=== PATIENT | male | born 1985 | race African-American/Black ===

== ENCOUNTER 2017-02-14 11:22 | Emergency (ER) | payer SELFPAY ==
[2017-02-14 11:29] VITALS: BP 137/87
[2017-02-14] MEDS ORDERED: LIDOCAINE 1% INJ-PF (10 MG/ML) 30 ML SDV INJ ONE (12:18)
--- NOTE | 2017-02-14 12:26 | ER Document Report ---
ED Skin Rash/Insect Bite/Abscs - General Chief Complaint: Insect Bite Stated Complaint: LEFT LEG PAIN Time Seen by Provider: 02/14/17 11:53 Mode of Arrival: Ambulatory Information source: Patient Notes: 31-year-old male presents to ED for complaint of pain and swelling to the left groin area with a rash on the top of his head. He states the first noticed the swelling to his groin on morning scalp is been inflamed since last Thursday. He awoke this with minimal swelling which is slowly progressed to the point where it is very painful to walk or move now he denies any fevers chills or night sweats. He is alert and oriented and is able to walk steady. TRAVEL OUTSIDE OF THE [place] IN LAST 30 DAYS: No - HPI Patient complains to provider of: Skin rash/lesion, Tender/swollen area - To the scalp to the left groin Onset: Last week Onset/Duration: Gradual, Worse Quality of pain: Achy, Sharp, Throbbing Severity: Severe Pain Level: 5 Skin Character: Abscess, Erythema, Macules, Tenderness Quality of rash: Painful Identify cause: No Exacerbated by: Denies Relieved by: Denies Similar symptoms previously: Yes Recently seen / treated by doctor: No - Related Data Allergies/Adverse Reactions: No Known Allergies Allergy (Verified 02/14/17 11:29) Past Medical History - General Information source: Patient - Social History Smoking Status: Former Smoker Cigarette use (# per day): No Chew tobacco use (# tins/day): No Smoking Education Provided: No Frequency of alcohol use: Social Drug Abuse: None Occupation: Moving company Lives with: Alone Family History: Arthritis, DM, Hypertension Patient has suicidal ideation: No Patient has homicidal ideation: No - Past Medical History Cardiac Medical History: Reports: None Pulmonary Medical History: Reports: None EENT Medical History: Reports: None Neurological Medical History: Reports: None Endocrine Medical History: Reports: None Renal/ Medical History: Reports: None Malignancy Medical History: Reports None GI Medical History: Reports: None Musculoskeltal Medical History: Reports None Skin Medical History: Reports Hx Cellulitis, Reports Hx Eczema Psychiatric Medical History: Reports: None Traumatic Medical History: Reports: None Infectious Medical History: Reports: None Surgical Hx: Negative - Immunizations Hx Diphtheria, Pertussis, Tetanus Vaccination: No Review of Systems - Review of Systems Constitutional: No symptoms reported EENT: No symptoms reported Cardiovascular: No symptoms reported Respiratory: No symptoms reported Gastrointestinal: No symptoms reported Genitourinary: No symptoms reported Male Genitourinary: No symptoms reported Musculoskeletal: No symptoms reported Skin: Lesions - Scalp, Other - Groin Hematologic/Lymphatic: No symptoms reported Neurological/Psychological: No symptoms reported -: Yes All other systems reviewed and negative Physical Exam - Vital signs Vitals: Temp Pulse Resp BP Pulse Ox 98.8 F 108 H 16 137/87 H 97 02/14/17 11:24 02/14/17 11:24 02/14/17 11:24 02/14/17 11:24 02/14/17 11:24 Interpretation: Normal - General General appearance: Appears well, Alert - HEENT Head: Other - Rash with open sores to the scalp Eyes: Normal Pupils: PERRL Ears: Normal External canal: Normal Tympanic membrane: Normal Sinus: Normal Nasal: Normal Mouth/Lips: Normal Mucous membranes: Normal Pharynx: Normal Neck: Normal - Respiratory Respiratory status: No respiratory distress Chest status: Nontender Breath sounds: Normal Chest palpation: Normal - Cardiovascular Rhythm: Regular Heart sounds: Normal auscultation Murmur: No - Abdominal Inspection: Normal Distension: No distension Bowel sounds: Normal Tenderness: Nontender Organomegaly: No organomegaly - Back Back: Normal, Nontender - Extremities General upper extremity: Normal inspection, Nontender, Normal color, Normal ROM , Normal temperature General lower extremity: Normal inspection, Nontender, Normal color, Normal ROM , Normal temperature, Normal weight bearing. No: Larisa's sign - Neurological Neuro grossly intact: Yes Cognition: Normal Orientation: AAOx4 [place] Coma Scale Eye Opening: Spontaneous [place] Coma Scale Verbal: Oriented Amos Coma Scale Motor: Obeys Commands Amos Coma Scale Total: 15 Speech: Normal Motor strength normal: LUE, RUE, LLE, RLE Sensory: Normal - Psychological Associated symptoms: Normal affect, Normal mood - Skin Skin Temperature: Warm Skin Moisture: Dry Skin Color: Normal Skin irregularity: Abscess - Left groin, Rash - Rash with open sores to the scalp Character of irregularity: Maculopapular - Some weeping Irregularity with: Swelling, Tenderness, Warmth, Crusting, Inflammation Course - Vital Signs Vital signs: Temp Pulse Resp BP Pulse Ox 98.8 F 108 H 16 137/87 H 97 02/14/17 11:24 02/14/17 11:24 02/14/17 11:24 02/14/17 11:24 02/14/17 11:24 Procedures - Incision and Drainage Left Groin Time completed: 13:02 Type: Simple Anesthetic type: 1% Lidocaine mL's of anesthetic: 8 Blade size: 11 I&D procedure: Shurclens applied, Sterile dressing applied Incision Method: Incision made by scalpel Amount/type of drainage: large amount of purulent drainage Discharge - Discharge Clinical Impression: scalp rash, Abscess of left groin Condition: Stable Disposition: HOME, SELF-CARE Instructions: Family Physicians / Practices Additional Instructions: ABSCESS: You have an abscess (boil). This a pus-forming infection, usually due to staph. Some boils may be left to drain on their own, but most require lancing. From the time the tender lump first appears, it may be three or four days before the abscess is ready to gerson. Local heat and rest help at this stage of treatment. An antibiotic may prevent spread of the infection. Once the abscess is opened, packing may be placed into it. This is done so pus is not sealed inside by premature closure of the cavity. The packing will be removed at your follow-up visit or you may be advised to remove it yourself at home. Sometimes this packing must be replaced a few times during healing. The wound will heal with surprisingly little scar. Depending on the size and location of an abscess, healing can take one to four weeks. You may shower and wash the area around the incision site two or three times a day. Antibiotics may be prescribed, but are usually not necessary after an abscess has been drained. If you develop fever, chills, worsening pain, or increasing swelling in the area, call the doctor or return immediately. POST INCISION AND DRAINAGE: You have had an incision made to allow drainage of an abscess. The incision must remain open so that pus and debris can drain from the wound. If the abscess cavity is large, packing is placed. This keeps the tissues from collapsing and trapping pus inside, while the body shrinks the cavity. The packing may need to be replaced every day or two. The physician will instruct you on the packing. Keep a bulky dressing over the area. Replace it if it becomes saturated with blood or pus. Do not disturb the packing (if present). You may shower and cleanse the area with gentle soap and warm water two or three times a day. Local warmth may be soothing, and may promote faster healing. Return if you develop high fever or chills, or if you note spreading redness, increasing swelling, or increasing tenderness. MRSA CELLULITIS: You have an infection of your skin and underlying soft tissues called cellulitis. This is due to bacteria, which can enter through any break in the skin, or even through an irritated hair follicle. Untreated, cellulitis will usually worsen and may form an abscess which requires draining. Although many bacterial organisms can cause cellulitis and abscess formations, the most likely bacteria is Methicillin-Resistant Staph Aureus, or MRSA for short. Antibiotics are required. Usually, warm packs or warm soaks, and elevation of the infected area are recommended. You should start getting better within 24 to 36 hours. Most infections respond quickly to the right medication. Follow-up care is important, however, to check for abscess (boil) formation, unsuspected foreign body, or resistant infection. If you develop fever, chills, or if the area of infection is becoming rapidly more swollen or painful, call the doctor at once. Epsom Salt Soaks Soak the wound area in a container of warm epsom salt water. If you can't get the wound area into a bucket or herrera, use a folded towel soaked in the epsom salt solution and apply to the area. Use clean hot tap water (about the temperature of a very warm bath), mixing in about one (1) teaspoon for every pint of water. Two gallon --> 16 teaspoons Epsom Salts One gallon --> 8 teaspoons Epsom Salts Two quarts --> 4 teaspoons Epsom Salts One quart --> 2 teaspoons Epsom Salts Soak the wound for about 20 minutes while gently moving it around in the water. Repeat this four (4) times a day. CEPHALEXIN: The antibiotic you've been prescribed is a member of the cephalosporin class. This type of antibiotic covers a wide variety of infections, including those of the skin, lungs, and urinary tract. It's useful for staph infections. This antibiotic is slightly similar to the penicillin family. In rare cases , a person who is allergic to penicillin will also be allergic to this medication. If you have had a severe allergic reaction to penicillin, and have not taken this antibiotic since that time, notify your doctor. Antibiotics which cover many germs ("broad spectrum" antibiotics) are more likely to cause diarrhea or "yeast" infections. Women prone to vaginal yeast problems may suffer an attack after taking this antibiotic. In infants, oral thrush (white spots "stuck" on the cheek) or yeast diaper rash may result. See your doctor if these problems occur. Call at once if you develop itching, hives , shortness of breath, or lightheadedness. TRIMETHOPRIM-SULFA: You have been given a prescription for trimethoprim-sulfa (TMS, Septra, Bactrim). This is a combination antibiotic of the sulfa class, often used for urinary tract infections, middle ear infections, bronchitis, shigella intestinal infection, and Pneumocystis pneumonia. TMS is usually well-tolerated. Occasional side effects include nausea and decreased appetite. Septra is not recommended for infants less than two months of age. Do not take this medication if you have experienced severe side effects or allergy to sulfa medicine. You should stop this medicine at once and contact your physician if you develop any rash, joint pain, shortness of breath, bruising, or jaundice ( yellow color in the skin), or if you develop any other new or unusual symptoms. DOXYCYCLINE: Doxycycline (Vibramycin, Doryx) is an antibiotic of the tetracycline family. This type of drug is useful for infections of the respiratory tract and genital tract, and is sometimes used for intestinal infections. Unlike most tetracyclines, doxycycline can be taken with food. It is longer acting, and (usually) less prone to side effects than regular tetracycline. Tetracycline antibiotics can stain immature teeth and SHOULD NOT BE TAKEN BY CHILDREN, NURSING MOTHERS, OR WOMEN. Tetracyclines can make you more prone to sunburn. Abdominal cramping, nausea, and diarrhea are occasional side effects. Women may experience vaginal yeast infections. Call the doctor at once if you develop hives, itching, shortness of breath , or lightheadedness. FOLLOW-UP CARE: Most simple abscesses will not require a follow up visit. If you had packing placed in the abscess, remove it as instructed by the physician. If you have been referred to a physician for follow-up care, call the physicians office for an appointment as you were instructed or within the next two days. If you experience worsening or a significant change in your symptoms, return to the Emergency Department at any time for re-evaluation. Prescriptions: Cephalexin Monohydrate [Keflex 500 mg Capsule] 500 mg PO QID #20 capsule Sulfamethoxazole/Trimethoprim [Bactrim Ds Tablet] 1 each PO BID #20 tablet Forms: Elevated Blood Pressure, Return to Work
[2017-02-14] MEDS ORDERED: SULFAMETHOXAZOLE/TRIMETHOPRIM 800-160 MG TABLET PO ONE (13:03)
[2017-02-14] MEDS ORDERED: CEPHALEXIN 500 MG CAPSULE PO ONE (13:03)
== END 2017-02-14 13:00 | disposition home or self-care (01) ==
LOC: ER 11:22
PROC: 0H97XZZ Drainage of Abdomen Skin, External Approach (ICD-10-PCS; principal; 2017-02-14)
DX: R21 Rash and other nonspecific skin eruption (principal); L02.214 Cutaneous abscess of groin
CPT/HCPCS: 87070; 87075; 87077; 87186; 87205; 99281

== ENCOUNTER 2017-02-25 11:39 | Emergency (ER) | payer SELFPAY ==
[2017-02-25 11:43] VITALS: BP 148/85
[2017-02-25] MEDS ORDERED: NYSTATIN/TRIAMCIN OINTMENT 15 GM TP ONE (12:32)
--- NOTE | 2017-02-25 12:36 | ER Document Report ---
ED Skin Rash/Insect Bite/Abscs - General Chief Complaint: Skin Problem Stated Complaint: SCROTUM PAIN Time Seen by Provider: 02/25/17 12:16 Mode of Arrival: Ambulatory Information source: Patient Notes: 11-year-old male presented to ED for complaint of irritation rash to the groin where he was seen 2 weeks ago for an abscess. The abscess was drained. He states that he has had irritation and rash to the area ever since the abscess was drained. He states he no longer has the pain or swelling. TRAVEL OUTSIDE OF THE [place] IN LAST 30 DAYS: No - HPI Patient complains to provider of: Skin rash/lesion Onset: Other - 2 weeks Onset/Duration: Persistent Quality of pain: No pain Severity: None Pain Level: Denies Skin Character: Rash Quality of rash: Itchy Identify cause: No Exacerbated by: Denies Relieved by: Denies Similar symptoms previously: No Recently seen / treated by doctor: Yes - Related Data Allergies/Adverse Reactions: No Known Allergies Allergy (Verified 02/25/17 11:42) Past Medical History - General Information source: Patient - Social History Smoking Status: Former Smoker Cigarette use (# per day): No Chew tobacco use (# tins/day): No Smoking Education Provided: No Frequency of alcohol use: None Drug Abuse: None 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 denies: CAD, COPD, CVA, Hyperlipidemia, Malignancy, Thyroid Disfunction Patient has suicidal ideation: No - Past Medical History Cardiac Medical History: Reports: None Pulmonary Medical History: Reports: None EENT Medical History: Reports: None Neurological Medical History: Reports: None Endocrine Medical History: Reports: None Renal/ Medical History: Reports: None Malignancy Medical History: Reports None GI Medical History: Reports: None Musculoskeltal Medical History: Reports None Skin Medical History: Reports Hx Cellulitis, Reports Hx Eczema Psychiatric Medical History: Reports: None Traumatic Medical History: Reports: None Infectious Medical History: Reports: None Surgical Hx: Negative Past Surgical History: Reports: None - Immunizations Hx Diphtheria, Pertussis, Tetanus Vaccination: No Review of Systems - Review of Systems Constitutional: No symptoms reported EENT: No symptoms reported Cardiovascular: No symptoms reported Respiratory: No symptoms reported Gastrointestinal: No symptoms reported Genitourinary: No symptoms reported Male Genitourinary: No symptoms reported Musculoskeletal: No symptoms reported Skin: Rash Hematologic/Lymphatic: No symptoms reported Neurological/Psychological: No symptoms reported Physical Exam - Vital signs Vitals: Temp Pulse Resp BP Pulse Ox 98.0 F 94 20 148/85 H 98 02/25/17 11:42 02/25/17 11:42 02/25/17 11:42 02/25/17 11:42 02/25/17 11:42 Interpretation: Normal - General General appearance: Appears well, Alert - HEENT Head: Normocephalic, Atraumatic Eyes: Normal Pupils: PERRL - Respiratory Respiratory status: No respiratory distress Chest status: Nontender Breath sounds: Normal Chest palpation: Normal - Cardiovascular Rhythm: Regular Heart sounds: Normal auscultation Murmur: No - Abdominal Inspection: Normal Distension: No distension Bowel sounds: Normal Tenderness: Nontender Organomegaly: No organomegaly - Genitourinary Tenderness: Other - Rash to the left groin area - Back Back: Normal, Nontender - Extremities General upper extremity: Normal inspection, Nontender, Normal color, Normal ROM , Normal temperature General lower extremity: Normal inspection, Nontender, Normal color, Normal ROM , Normal temperature, Normal weight bearing. No: Larisa's sign - Neurological Neuro grossly intact: Yes Cognition: Normal Orientation: AAOx4 [place] Coma Scale Eye Opening: Spontaneous [place] Coma Scale Verbal: Oriented [place] Coma Scale Motor: Obeys Commands Amos Coma Scale Total: 15 Speech: Normal Motor strength normal: LUE, RUE, LLE, RLE Sensory: Normal - Psychological Associated symptoms: Normal affect, Normal mood - Skin Skin Temperature: Warm Skin Moisture: Dry Skin Color: Normal Course - Re-evaluation Re-evalutation: 02/25/17 21:38 Patient was treated with Mycolog and sent home with prescription for Mycolog and instructions to follow-up with the primary doctor and a distribution system operator. - Vital Signs Vital signs: Temp Pulse Resp BP Pulse Ox 98.0 F 94 20 148/85 H 98 02/25/17 11:42 02/25/17 11:42 02/25/17 11:42 02/25/17 11:42 02/25/17 11:42 Discharge - Discharge Clinical Impression: Yeast infection of the skin Condition: Stable Disposition: HOME, SELF-CARE Additional Instructions: You have a yeast infection of the skin this is sometimes brought on by use of antibiotics. Warm moist areas can develop yeast especially when you are taking antibiotics. Try to wear white cotton underwear until the rash clears up. I will write she said Mycolog cream which is a anti-yeast medicine with some steroid which will help with the itching and irritation. FOLLOW-UP CARE: If you have been referred to a physician for follow-up care, call the physician s office for an appointment as you were instructed or within the next two days. If you experience worsening or a significant change in your symptoms, notify the physician immediately or return to the Emergency Department at any time for re-evaluation. Forms: Elevated Blood Pressure Referrals: MARCOS CURRIE DO [ACTIVE STAFF] - Follow up as needed
== END 2017-02-25 12:30 | disposition home or self-care (01) ==
LOC: ER 11:39
DX: B37.2 Candidiasis of skin and nail (principal); Z87.891 Personal history of nicotine dependence
CPT/HCPCS: 99282; J3490

== ENCOUNTER 2017-03-06 22:40 | Inpatient (IN) | payer SELFPAY ==
[2017-03-07] MEDS ORDERED: NORMAL SALINE 1000 ML 2,000 ML IV PRN (00:17)
--- NOTE | 2017-03-07 00:37 | ER Document Report ---
ED General - General Chief Complaint: Other Stated Complaint: IRREGULAR LABS Time Seen by Provider: 03/07/17 00:04 Mode of Arrival: Ambulatory Information source: Patient TRAVEL OUTSIDE OF THE [place] IN LAST 30 DAYS: No - HPI Patient complains to provider of: Elevated blood sugar Quality of pain: No pain Notes: Patient is a 31-year-old male with no known past medical history presenting to the emergency room tonight complaining of increased thirst and urination that has been going on over the past 3-4 weeks, giving him concern for possible elevated blood sugar, has a strong family history of diabetes, patient denies any nausea or vomiting, no pain, no fevers, no shortness of breath - Related Data Allergies/Adverse Reactions: No Known Allergies Allergy (Verified 02/25/17 11:42) Home Medications: Current Home Medications No Home Medications 03/07/17 [History] Past Medical History - General Information source: Patient - Social History Smoking Status: Unknown if Ever Smoked Family History: Arthritis, DM, Hypertension. denies: CAD, COPD, CVA, Hyperlipidemia, Malignancy, Thyroid Disfunction Patient has suicidal ideation: No Patient has homicidal ideation: No Renal/ Medical History: Denies: Hx Peritoneal Dialysis Skin Medical History: Reports Hx Cellulitis, Reports Hx Eczema - Immunizations Hx Diphtheria, Pertussis, Tetanus Vaccination: No Review of Systems - Review of Systems Constitutional: No symptoms reported EENT: No symptoms reported Cardiovascular: No symptoms reported Respiratory: No symptoms reported Gastrointestinal: No symptoms reported Genitourinary: See HPI Male Genitourinary: No symptoms reported Musculoskeletal: No symptoms reported Skin: No symptoms reported Hematologic/Lymphatic: No symptoms reported Neurological/Psychological: No symptoms reported -: Yes All other systems reviewed and negative Physical Exam - Vital signs Vitals: Temp Pulse Resp BP Pulse Ox 98.1 F 108 H 18 149/89 H 97 03/06/17 22:43 03/06/17 22:43 03/06/17 22:43 03/06/17 22:43 03/06/17 22:43 Interpretation: Tachycardic - General General appearance: Appears well, Alert - HEENT Head: Normocephalic, Atraumatic Eyes: Normal Pupils: PERRL - Respiratory Respiratory status: No respiratory distress Chest status: Nontender Breath sounds: Normal Chest palpation: Normal - Cardiovascular Rhythm: Regular Heart sounds: Normal auscultation Murmur: No - Abdominal Inspection: Normal Distension: No distension Bowel sounds: Normal Tenderness: Nontender Organomegaly: No organomegaly - Back Back: Normal, Nontender - Extremities General upper extremity: Normal inspection, Nontender, Normal color, Normal ROM , Normal temperature General lower extremity: Normal inspection, Nontender, Normal color, Normal ROM , Normal temperature, Normal weight bearing. No: Larisa's sign - Neurological Neuro grossly intact: Yes Cognition: Normal Orientation: AAOx4 [place] Coma Scale Eye Opening: Spontaneous [place] Coma Scale Verbal: Oriented [place] Coma Scale Motor: Obeys Commands [place] Coma Scale Total: 15 Speech: Normal Motor strength normal: LUE, RUE, LLE, RLE Sensory: Normal - Psychological Associated symptoms: Normal affect, Normal mood - Skin Skin Temperature: Warm Skin Moisture: Dry Skin Color: Normal Course - Re-evaluation Re-evalutation: 03/07/17 02:23 Patient's lab values are consistent with diabetic ketoacidosis, this was discussed with him and admission was advised, patient was somewhat reluctant to be admitted, when I discussed with him the severity of the situation and the morbility and mortality associated with nontreated diabetic ketoacidosis he was agreeable to staying, patient was discussed with the hospitalist who agrees to admit for further evaluation and treatment - Vital Signs Vital signs: Temp Pulse Resp BP Pulse Ox 97.4 F 96 20 151/92 H 98 03/07/17 02:24 03/07/17 02:24 03/07/17 02:24 03/07/17 02:24 03/07/17 02:24 - Laboratory Result Diagrams: 03/07/17 01:20 03/07/17 01:20 Laboratory results interpreted by me: 03/07/17 03/07/17 03/07/17 00:36 01:20 01:20 WBC RDW VBG pCO2 VBG HCO3 Sodium 133.9 L Chloride 96 L Carbon Dioxide 8 L* Anion Gap 30 H Glucose 583 H* Serum Osmolality 309 H Direct Bilirubin 0.5 H Alkaline Phosphatase 216 H Total Protein 8.4 H Urine Glucose (UA) >=500 H Urine Ketones 80 H 03/07/17 03/07/17 01:20 01:20 WBC 10.8 H RDW 14.3 H VBG pCO2 26.1 L VBG HCO3 13.5 L Sodium Chloride Carbon Dioxide Anion Gap Glucose Serum Osmolality Direct Bilirubin Alkaline Phosphatase Total Protein Urine Glucose (UA) Urine Ketones Critical Care Note - Critical Care Note Total time excluding time spent on procedures (mins): 30 Comments: Patient tachycardic on arrival, lab values consistent with diabetic ketoacidosis , time spent discussing severity of situation with patient and convincing him to stay in the hospital for admission for appropriate treatment Discharge - Discharge Clinical Impression: Diabetic ketoacidosis Qualifiers: Diabetes mellitus type: type 2 Diabetes mellitus complication detail: without coma Qualified Code(s): E13.10 - Other specified diabetes mellitus with ketoacidosis without coma Condition: Serious Disposition: ADMITTED INPATIENT Admitting Provider: Hospitalist Unit Admitted: [facility]
[2017-03-07 01:31] LABS: ABSOLUTE BASOPHILS # (AUTO) 0.1 10^3/uL (0.0-0.2); ABSOLUTE EOSINOPHILS # (AUTO) 0.1 10^3/uL (0.0-0.6); ABSOLUTE LYMPHOCYTES (AUTO) 1.7 10^3/uL (0.5-4.7); ABSOLUTE NEUT (AUTO) 7.9 10^3/uL (1.7-8.2); BASOPHILS % (AUTO) 0.6 % (0-2); EOSINOPHILS % (AUTO) 0.8 % (0-6); HEMATOCRIT 44.8 % (37.9-51.0); HEMOGLOBIN 15.6 g/dL (13.5-17.0); LYMPHOCYTES % (AUTO) 15.9 % (13-45); MEAN CORPUSCULAR HEMOGLOBIN 31.5 pg (27.0-33.4); MEAN CORPUSCULAR HGB CONC 34.9 g/dL (32.0-36.0); MEAN CORPUSCULAR VOLUME 90 fl (80-97); MONOCYTES % (AUTO) 9.4 % (3-13); RED BLOOD COUNT 4.96 10^6/uL (4.35-5.55); RED CELL DISTRIBUTION WIDTH 14.3 % (11.5-14.0); SEGMENTED NEUTROPHILS % (AUTO) 73.3 % (42-78); WHITE BLOOD COUNT 10.8 10^3/uL (4.0-10.5)
[2017-03-07 01:46] LABS: ALANINE AMINOTRANSFERASE 41 U/L (21-72); ALKALINE PHOSPHATASE 216 U/L (38-126); ASPARTATE AMINO TRANSFERASE 21 U/L (17-59); BILIRUBIN,DIRECT 0.5 mg/dL (0.0-0.4); BILIRUBIN,TOTAL 0.8 mg/dL (0.2-1.3); BLOOD UREA NITROGEN 9 mg/dL (7-20); CALCIUM 10.1 mg/dL (8.4-10.2); CREATININE RESULT 0.91 mg/dL (0.52-1.25); TOTAL PROTEIN 8.4 g/dL (6.3-8.2)
[2017-03-07] MEDS ORDERED: NORMAL SALINE 1000 ML 1,000 ML IV PRN (01:49)
[2017-03-07 01:55] LABS: VENOUS BLOOD BASE EXCESS -10.4 mmol/L; VENOUS BLOOD HCO3 13.5 mmol/L (20-32); VENOUS BLOOD PCO2 26.1 mmHg (35-63); VENOUS BLOOD PH 7.33 (7.30-7.42)
[2017-03-07 02:10] LABS: CARBON DIOXIDE 8 mmol/L (22-30); GLUCOSE 583 mg/dL (75-110)
[2017-03-07 02:13] LABS: CHLORIDE 96 mmol/L (98-107); POTASSIUM 4.3 mmol/L (3.6-5.0); SODIUM 133.9 mmol/L (137-145)
[2017-03-07 02:14] LABS: ANION GAP 30 (5-19)
[2017-03-07] MEDS ORDERED: DEXTROSE 40% GEL 15 GM TUBE PO PRN ×4 (02:15→02:28)
[2017-03-07] MEDS ORDERED: GLUCAGON,HUMAN RECOMB 1 MG INJ IM PRN ×2 (02:15→02:28)
[2017-03-07] MEDS ORDERED: NORMAL SALINE 100 ML with INSULIN REGULAR, HUMAN 100 UNIT IV PRN ×2 (02:15)
[2017-03-07] MEDS ORDERED: DEXTROSE 50%-WATER 25 GM/50 ML DISP.SYRIN IV PRN ×4 (02:15→02:28)
[2017-03-07] MEDS ORDERED: 1/2 NORMAL SALINE 1,000 ML IV PRN (02:28)
[2017-03-07] MEDS ORDERED: NORMAL SALINE 1000 ML 3,000 ML IV ONE (02:28)
[2017-03-07] MEDS ORDERED: ACETAMINOPHEN 325 MG TABLET PO PRN (02:29)
[2017-03-07] MEDS ORDERED: PROMETHAZINE HCL 25 MG TABLET PO PRN (02:29)
[2017-03-07 02:32] LABS: APPEARANCE,URINE CLEAR; BILIRUBIN,URINE NEGATIVE (NEGATIVE); GLUCOSE, URINE >=500 mg/dL (NEGATIVE); KETONES,URINE 80 mg/dL (NEGATIVE); LEUKOCYTE ESTERASE,URINE NEGATIVE (NEGATIVE); NITRITE,URINE NEGATIVE (NEGATIVE); PROTEIN,URINE NEGATIVE (NEGATIVE); URINE SPECIFIC GRAVITY 1.028; UROBILINOGEN,URINE NEGATIVE mg/dL (<2.0)
[2017-03-07] MEDS ORDERED: INSULIN REG, HUMAN 100 UNIT/ML 3 ML VIAL (PYX) ONE (02:46)
[2017-03-07 02:54] LABS: URINE BARBITURATES SCREEN NEGATIVE; URINE METHADONE SCREEN NEGATIVE; URINE OPIATES LOW NEGATIVE; URINE PHENCYCLIDINE SCREEN NEGATIVE
[2017-03-07] MEDS: NORMAL SALINE 100 ML with INSULIN REGULAR, HUMAN 100 UNIT IV PRN ×20 (02:54→18:35)
[2017-03-07] MEDS ORDERED: MAGNESIUM HYDROXIDE SUSP 30 ML UDCUP PO PRN (03:42)
[2017-03-07] MEDS ORDERED: ENALAPRILAT DIHYDRATE INJ/PF 1.25 MG/1 ML SDV IV PRN (03:52)
--- NOTE | 2017-03-07 03:58 | PDOC H&P ---
History of Present Illness Admission Date/PCP: 03/07/17 02:30 PCP None Patient complains of: increased thirst, urination History of Present Illness: JERRY IZQUIERDO is a 31 year old obese -Cub[place] male, with past medical history basically only remarkable for mild eczema and psoriasis, who presents to the emergency room for 3-4 week history of increased thirst and urination. Concern for possible elevated blood sugar, although no first-degree relatives with diabetes mellitus. No other complaints, including nausea vomiting, fever chills, diarrhea or dysuria. No known weight loss. Denies headache, chest or abdominal pain. Denies any "sore spots" anywhere on his body. Did not realize he was diabetic. Patient has been discussed with emergency room physician who evaluated the patient. Dictation via voice recognition software. Laboratory results are listed in [employer] and are reviewed. X-ray summary --portable AP chest x-ray film reviewed. Radiology report pending. EKG reviewed. No prior EKG available for comparison. Social history/personal habits: Single. 2 children. Works for a moving company. No tobacco or illicit drug use. No alcohol use for 2 months. No known drug allergies. Home medications none REVIEW OF SYSTEMS: Constitutional: No fever or chills. Eyes: No vision complaints. ENT: No swallowing problems or complaints. Denies hearing loss. Pulmonary: No current complaints. Cardiovascular: No current complaints, including chest pain. Gastrointestinal: No current complaints, including nausea or vomiting. Skin: Occasional problems with eczema and psoriasis. Hematologic: Denies easy bruising. Neurologic: No current complaints, including numbness or tingling. Musculoskeletal: No current or chronic joint complaints, such as arthritis. Psychiatric: Denies anxiety or depression. Endocrine: See history and present illness. Genitourinary: No current complaints, including dysuria. PHYSICAL EXAMINATION: 5 feet 10 inches tall. 124.7 kg. BMI 39.5 kg/m. Temperature 97.4. Pulse 96 and regular. Blood pressure 151/92. Respirations are 20 and unlabored. 98% saturation on room air. Emergency room skilled nursing facility counselor Neptali is present. Obese otherwise well-developed young -Cub[place] male appearing approximately his stated age. Appears perhaps slightly fatigued. Otherwise, pleasant awake alert and cooperative and in no other obvious distress. Skin is warm and dry. No grossly obvious evidence of rash in areas of skin examined. No subcutaneous nodules palpated. Multiple tattoos. ENT: Hearing grossly normal to normal conversation. Tongue midline on protrusion pink and moist. Eyes: No scleral icterus. Pupils equal and reactive to light at 4 mm. [place] conjunctivae. Neck is supple and nontender to gentle active range of motion and palpation. Midline trachea. No palpable thyroid nodule mass enlargement or tenderness. Lymphatic: No palpable cervical or clavicular nodes. Neck and lymphatic exams limited by patient body habitus. Psychiatric: Reasonable insight into acute and chronic medical issues. Oriented to time location and why here. Lungs: Auscultation reveals clear and equal breath sounds bilaterally. No use of accessory respiratory muscles. Cardiovascular: Heart regular rate and rhythm, without gallop murmur or rub. No carotid or abdominal aortic bruits. No ankle or pedal edema. Palpable dorsalis pedis pulses. Abdomen:soft obese nontender with positive bowel sounds. Unable to adequately evaluate abdomen for masses or organomegaly due to body habitus. Extremities: Feet are warm and dry. No calf tenderness to compression. No grossly obvious visual evidence of calf swelling. Gentle manipulation of lower extremities fails to reveal any obvious evidence of injury or instability to knees hips or ankles. Neurologic: Moves upper extremities grossly normally. Patellar reflexes absent. Absent Babinski. Light touch is intact at feet. Dorsiflexion and plantarflexion of feet 5 / 5 and symmetric. Past Medical History Cardiac Medical History: Denies: Atrial Fibrillation, Congestive Heart Failure, Coronary Artery Disease, DVT, Myocardial Infarction, Hyperlipidema, Hypertension, Pulmonary Embolism Pulmonary Medical History: Denies: Asthma, Chronic Obstructive Pulmonary Disease (COPD), Sleep Apnea EENT Medical History: Denies: Eyes, Ears, Throat Neurological Medical History: Denies: Hemorrhagic CVA, Ischemic CVA, Multiple Sclerosis, Seizures Endocrine Medical History: Denies: Diabetes Mellitus Type 1, Diabetes Mellitus Type 2, Hyperthyroidism, Hypothyroidism Renal/ Medical History: Reports: None GI Medical History: Denies: Cirrhosis, Gastroesophageal Reflux Disease, Hepatitis, Peptic Ulcer Disease Musculoskeltal Medical History: Denies: Arthritis Skin Medical History: Reports: Eczema, Psoriasis Psychiatric Medical History: Denies: Alcohol Dependency, Depression, General Anxiety Disorder, Substance Abuse, Tobacco Dependency Infectious Medical History: Denies: Clostridium Difficile, Hepatitis B, Hepatitis C, Methicillin- Resistant Staph Aureus Past Surgical History Past Surgical History: Reports: Tonsillectomy, Other - [place] teeth extraction Social History Information Source: Patient, Emergency Med Personnel, [facility] Records Smoking Status: Unknown if Ever Smoked Frequency of Alcohol Use: None - 2 months Drugs: None - Advance Directive Resuscitation Status: Full Code Surrogate healthcare decision maker:: Mother Family History Family History: Arthritis, DM, Hypertension. denies: CAD, COPD, CVA, Hyperlipidemia, Malignancy, Thyroid Disfunction Parental Family History Reviewed: Yes - Father with arthritis. Mother hypertensive. Children Family History Reviewed: Yes - Healthy Sibling(s) Family History Reviewed.: Yes - Healthy Medication/Allergy Home Medications: RX: Hum Insulin NPH/Reg Insulin Hm [Insulin 70-30 (NPH/Reg) 100 unit/mL] 85 unit SUBCUT QAM #1 vial 03/09/17 RX: Lisinopril [Prinivil 10 mg Tablet] 10 mg PO DAILY #30 tablet 03/09/17 RX: NPH, Human Insulin Isophane [Humulin N (NPH) Insulin 100 unit/mL] 50 unit SUBCUT QPM #1 vial 03/09/17 RX: Simvastatin [Zocor 40 mg Tablet] 40 mg PO QHS #30 tablet 03/09/17 Allergies/Adverse Reactions: No Known Allergies Allergy (Verified 02/25/17 11:42) Physical Exam Vital Signs: Temp Pulse Resp BP Pulse Ox 97.4 F 96 20 151/92 H 98 03/07/17 02:24 03/07/17 02:24 03/07/17 02:24 03/07/17 02:24 03/07/17 02:24 Assessment & Plan - Diagnosis (1) DVT prophylaxis Is this a current diagnosis for this admission?: Yes (2) Diabetic ketoacidosis Qualifiers: Diabetes mellitus type: type 2 Diabetes mellitus complication detail: without coma Qualified Code(s): E13.10 - Other specified diabetes mellitus with ketoacidosis without coma Is this a current diagnosis for this admission?: Yes Plan: Patient will be admitted under DKA protocol. Insulin drip. Vigorous fluid hydration. Q 4 hours chemistry 7. Hourly Accu-Cheks. Addition of dextrose to intravenous fluid once serum glucose and/or Accu-Cheks 275 or less. Patient is full code. I have strongly encouraged patient to be careful getting of bed, to avoid a fall with injury. Knee high SCDs for DVT prophylaxis, along with subcutaneous heparin. Impression and plans were discussed with patient , who concurs. Time spent in evaluation and management of patient: 68 critical care minutes (3) Elevated LFTs Is this a current diagnosis for this admission?: Yes Plan: Follow-up chemistry. (4) Obesity Qualifiers: Obesity type: unspecified obesity type Obesity classification: adult class 2 (BMI 35 ? 39.9) Serious obesity comorbidity presence: with serious comorbidity Body mass index: BMI 39.0-39.9 Qualified Code(s): E66.9 - Obesity, unspecified; Z68.39 - Body mass index (BMI) 39.0-39.9, adult; Z68.39 - Body mass index (BMI) 39.0-39.9, adult Is this a current diagnosis for this admission?: Yes Plan: Dietary consult. - Time Critical Time spent with patient: 35 or more minutes Medications reviewed and adjusted accordingly: Yes Anticipated discharge: Home Within: within 72 hours - Inpatient Certification Based on my medical assessment, after consideration of the patient's comorbidities, presenting symptoms, or acuity I expect that the services needed warrant INPATIENT care.: Yes I certify that my determination is in accordance with my understanding of Medicare's requirements for reasonable and necessary INPATIENT services [42 CFR 412.3e].: Yes Medical Necessity: Need Close Monitoring Due to Risk of Patient Decompensation, Need For IV Fluids, Need For Continuous Telemetry Monitoring, Risk of Complication if Not Cared For in Hospital Post Hospital Care: D/C or Transfer Summary
--- NOTE | 2017-03-07 05:09 | RADIOLOGY REPORT (SQ) ---
EXAM DESCRIPTION: CHEST SINGLE VIEW CLINICAL HISTORY: 31 years, Male, dka COMPARISON: None. NUMBER OF VIEWS: 1 TECHNIQUE: Routine radiographic technique. LIMITATIONS: None. FINDINGS: Cardiac size and pulmonary vasculature are normal. Lungs are clear on this single view. No pleural effusions or pneumothorax. Bones appear grossly normal. No free peritoneal gas under the hemidiaphragms. IMPRESSION: Normal portable AP chest radiograph. 2011 [facility] [employer]- All Rights Reserved
[2017-03-07] MEDS: HEPARIN SOD (PORCINE) 5,000 UNIT/ML 1 ML SYRINGE SUBCUT SCH ×3 (05:40→22:53)
[2017-03-07 06:25] LABS: CHOLESTEROL 230.07 mg/dL (0-200); Direct HDL 31 mg/dL (>40)
[2017-03-07 06:27] LABS: ANION GAP 19 (5-19); BLOOD UREA NITROGEN 6 mg/dL (7-20); CALCIUM 8.6 mg/dL (8.4-10.2); CARBON DIOXIDE 13 mmol/L (22-30); CHLORIDE 109 mmol/L (98-107); CREATININE RESULT 0.74 mg/dL (0.52-1.25); GLUCOSE 223 mg/dL (75-110); POTASSIUM 3.6 mmol/L (3.6-5.0); SODIUM 141.1 mmol/L (137-145)
[2017-03-07 06:39] LABS: DIRECT LDL < 30 mg/dL (<100)
[2017-03-07 06:45] LABS: TRIGLYCERIDES 760 mg/dL (<150)
[2017-03-07] MEDS: DEXTROSE 5%-NORMAL SALINE 1,000 ML IV PRN ×5 (08:15→19:58)
[2017-03-07] MEDS: DOCUSATE SODIUM 100 MG CAPSULE PO SCH ×2 (08:59→15:24)
[2017-03-07 09:26] LABS: ANION GAP 15 (5-19); BLOOD UREA NITROGEN 5 mg/dL (7-20); CALCIUM 8.4 mg/dL (8.4-10.2); CARBON DIOXIDE 18 mmol/L (22-30); CHLORIDE 112 mmol/L (98-107); CREATININE RESULT 0.61 mg/dL (0.52-1.25); GLUCOSE 92 mg/dL (75-110); POTASSIUM 3.4 mmol/L (3.6-5.0); SODIUM 144.6 mmol/L (137-145)
[2017-03-07] MEDS: POTASSI CL 20 MEQ/50 ML RIDER 20 MEQ/50 ML RTUPB IV SCH ×2 (09:45→12:00)
[2017-03-07 12:44] LABS: APPEARANCE,URINE SLIGHTLY-CLOUDY; BILIRUBIN,URINE NEGATIVE (NEGATIVE); GLUCOSE, URINE >=500 mg/dL (NEGATIVE); KETONES,URINE 80 mg/dL (NEGATIVE); LEUKOCYTE ESTERASE,URINE NEGATIVE (NEGATIVE); NITRITE,URINE NEGATIVE (NEGATIVE); PROTEIN,URINE 30 mg/dL (NEGATIVE); URINE SPECIFIC GRAVITY 1.025; UROBILINOGEN,URINE NEGATIVE mg/dL (<2.0)
[2017-03-07] MEDS ORDERED: POTASSIUM CHLORIDE 10 MEQ TABLET.SA PO ONE ×2 (13:36→18:34)
[2017-03-07] MEDS ORDERED: SIMVASTATIN 40 MG TABLET PO SCH (14:00)
[2017-03-07 14:27] LABS: ANION GAP 14 (5-19); BLOOD UREA NITROGEN 5 mg/dL (7-20); CALCIUM 8.8 mg/dL (8.4-10.2); CARBON DIOXIDE 18 mmol/L (22-30); CHLORIDE 108 mmol/L (98-107); CREATININE RESULT 0.62 mg/dL (0.52-1.25); GLUCOSE 254 mg/dL (75-110); POTASSIUM 3.9 mmol/L (3.6-5.0); SODIUM 139.7 mmol/L (137-145)
[2017-03-07 18:27] LABS: ANION GAP 10 (5-19); BLOOD UREA NITROGEN 6 mg/dL (7-20); CALCIUM 8.8 mg/dL (8.4-10.2); CARBON DIOXIDE 19 mmol/L (22-30); CHLORIDE 107 mmol/L (98-107); CREATININE RESULT 0.68 mg/dL (0.52-1.25); GLUCOSE 339 mg/dL (75-110); POTASSIUM 3.5 mmol/L (3.6-5.0); SODIUM 135.5 mmol/L (137-145)
[2017-03-07 21:58] LABS: ANION GAP 8 (5-19); BLOOD UREA NITROGEN 5 mg/dL (7-20); CALCIUM 9.1 mg/dL (8.4-10.2); CARBON DIOXIDE 24 mmol/L (22-30); CHLORIDE 107 mmol/L (98-107); CREATININE RESULT 0.65 mg/dL (0.52-1.25); GLUCOSE 260 mg/dL (75-110); POTASSIUM 3.6 mmol/L (3.6-5.0); SODIUM 138.8 mmol/L (137-145)
[2017-03-07] MEDS: SIMVASTATIN 40 MG TABLET PO SCH (22:53)
[2017-03-08] MEDS: POTASSIUM CHLORIDE 20 MEQ/15 ML UDCUP PO SCH ×4 (00:28→06:06)
[2017-03-08 01:19] LABS: ANION GAP 9 (5-19); BLOOD UREA NITROGEN 4 mg/dL (7-20); CARBON DIOXIDE 23 mmol/L (22-30); CHLORIDE 111 mmol/L (98-107); CREATININE RESULT 0.61 mg/dL (0.52-1.25); GLUCOSE 176 mg/dL (75-110); POTASSIUM 3.4 mmol/L (3.6-5.0); SODIUM 143.1 mmol/L (137-145)
[2017-03-08] MEDS: DEXTROSE 5%-NORMAL SALINE 1,000 ML IV PRN ×2 (02:56→07:15)
[2017-03-08] MEDS: HEPARIN SOD (PORCINE) 5,000 UNIT/ML 1 ML SYRINGE SUBCUT SCH ×3 (06:06→21:21)
[2017-03-08 06:09] LABS: ABSOLUTE BASOPHILS # (AUTO) 0.1 10^3/uL (0.0-0.2); ABSOLUTE EOSINOPHILS # (AUTO) 0.1 10^3/uL (0.0-0.6); ABSOLUTE LYMPHOCYTES (AUTO) 2.1 10^3/uL (0.5-4.7); ABSOLUTE MONOCYTES (AUTO) 0.8 10^3/uL (0.1-1.4); ABSOLUTE NEUT (AUTO) 4.4 10^3/uL (1.7-8.2); BASOPHILS % (AUTO) 0.7 % (0-2); EOSINOPHILS % (AUTO) 1.6 % (0-6); HGB HCT DIFFERENCE 1.4; MEAN CORPUSCULAR HEMOGLOBIN 30.3 pg (27.0-33.4); MEAN CORPUSCULAR HGB CONC 34.7 g/dL (32.0-36.0); MEAN CORPUSCULAR VOLUME 87 fl (80-97); MONOCYTES % (AUTO) 10.2 % (3-13); RED BLOOD COUNT 4.24 10^6/uL (4.35-5.55); RED CELL DISTRIBUTION WIDTH 14.2 % (11.5-14.0); SEGMENTED NEUTROPHILS % (AUTO) 59.5 % (42-78); WHITE BLOOD COUNT 7.5 10^3/uL (4.0-10.5)
[2017-03-08 06:14] LABS: ALANINE AMINOTRANSFERASE 33 U/L (21-72); ALBUMIN 2.9 g/dL (3.5-5.0); ALKALINE PHOSPHATASE 77 U/L (38-126); ASPARTATE AMINO TRANSFERASE 17 U/L (17-59); BILIRUBIN,DIRECT 0.3 mg/dL (0.0-0.4); BILIRUBIN,TOTAL 0.4 mg/dL (0.2-1.3); MAGNESIUM 1.6 mg/dL (1.6-2.3); PHOSPHORUS 1.6 mg/dL (2.5-4.5); TOTAL PROTEIN 5.5 g/dL (6.3-8.2)
[2017-03-08 06:19] LABS: ANION GAP 7 (5-19); BLOOD UREA NITROGEN 4 mg/dL (7-20); CARBON DIOXIDE 26 mmol/L (22-30); CHLORIDE 110 mmol/L (98-107); CREATININE RESULT 0.59 mg/dL (0.52-1.25); GLUCOSE 118 mg/dL (75-110); HEMOGLOBIN 12.8 g/dL (13.5-17.0); POTASSIUM 3.3 mmol/L (3.6-5.0); SODIUM 143.3 mmol/L (137-145)
[2017-03-08] MEDS ORDERED: POTASSIUM PHOS,M-BASIC-D-BASIC 30 MMOL in NORMAL SALINE 500 ML IV ONE ×2 (07:04→09:30)
[2017-03-08] MEDS: NORMAL SALINE 100 ML with INSULIN REGULAR, HUMAN 100 UNIT IV PRN ×2 (07:15)
[2017-03-08] MEDS ORDERED: DEXTROSE 40% GEL 15 GM TUBE PO PRN ×2 (07:37)
[2017-03-08] MEDS ORDERED: DEXTROSE 50%-WATER 25 GM/50 ML DISP.SYRIN IV PRN ×2 (07:37)
[2017-03-08] MEDS ORDERED: GLUCAGON,HUMAN RECOMB 1 MG INJ IM PRN (07:37)
[2017-03-08] MEDS ORDERED: HUM INSULIN NPH/REG INSULIN HM 100 UNIT/1 ML 3 ML SUBCUT SCH (08:00)
[2017-03-08] MEDS ORDERED: HUM INSULIN NPH/REG INSULIN HM 100 UNIT/1 ML 3 ML SUBCUT ONE (08:27)
[2017-03-08] MEDS: MAGNESIUM SULFATE/D5W 1 GM/100 ML RTUPB IV SCH ×2 (08:42→10:00)
[2017-03-08] MEDS: DOCUSATE SODIUM 100 MG CAPSULE PO SCH ×2 (08:45→17:23)
[2017-03-08 09:59] LABS: ANION GAP 9 (5-19); BLOOD UREA NITROGEN 4 mg/dL (7-20); CARBON DIOXIDE 22 mmol/L (22-30); CHLORIDE 108 mmol/L (98-107); CREATININE RESULT 0.63 mg/dL (0.52-1.25); GLUCOSE 272 mg/dL (75-110); POTASSIUM 3.4 mmol/L (3.6-5.0); SODIUM 138.9 mmol/L (137-145)
[2017-03-08] MEDS: LISINOPRIL 10 MG TABLET PO SCH (12:00)
[2017-03-08 14:47] LABS: APPEARANCE,URINE CLEAR; BILIRUBIN,URINE NEGATIVE (NEGATIVE); GLUCOSE, URINE >=500 mg/dL (NEGATIVE); KETONES,URINE 20 mg/dL (NEGATIVE); LEUKOCYTE ESTERASE,URINE NEGATIVE (NEGATIVE); NITRITE,URINE NEGATIVE (NEGATIVE); PROTEIN,URINE NEGATIVE (NEGATIVE); URINE SPECIFIC GRAVITY 1.015; UROBILINOGEN,URINE NEGATIVE mg/dL (<2.0)
--- NOTE | 2017-03-08 16:38 | PDOC PROGRESS REPORT ---
Subjective Progress Note for:: 03/08/17 Subjective:: Pt states that he wants to go home. Nursing states that pt urine still has ketones. Physical Exam Vital Signs: Temp Pulse Resp BP Pulse Ox 98.0 F 82 18 111/53 L 98 03/08/17 10:57 03/08/17 14:00 03/08/17 10:57 03/08/17 10:57 03/08/17 10:57 Intake & Output 03/07/17 03/08/17 03/09/17 06:59 06:59 06:59 Intake Total 2100 89574 0 Output Total 7225 Balance 2100 2930 0 Weight 121.1 kg General appearance: PRESENT: no acute distress, well-developed, well-nourished Head exam: PRESENT: atraumatic, normocephalic Eye exam: PRESENT: conjunctiva pink, EOMI. ABSENT: scleral icterus Ear exam: PRESENT: normal external ear exam Mouth exam: PRESENT: moist, tongue midline Neck exam: ABSENT: carotid bruit, JVD, lymphadenopathy, thyromegaly Respiratory exam: PRESENT: clear to auscultation catracho. ABSENT: rales, rhonchi, wheezes Cardiovascular exam: PRESENT: RRR. ABSENT: diastolic murmur, rubs, systolic murmur Pulses: PRESENT: normal dorsalis pedis pul Vascular exam: PRESENT: normal capillary refill GI/Abdominal exam: PRESENT: normal bowel sounds, soft. ABSENT: distended, guarding, mass, organolmegaly, rebound, tenderness Rectal exam: PRESENT: deferred Extremities exam: PRESENT: full ROM. ABSENT: calf tenderness, clubbing, pedal edema Neurological exam: PRESENT: alert, awake, oriented to person, oriented to place , oriented to time, oriented to situation, CN II-XII grossly intact. ABSENT: motor sensory deficit Psychiatric exam: PRESENT: appropriate affect, normal mood. ABSENT: homicidal ideation, suicidal ideation Skin exam: PRESENT: dry, intact, warm. ABSENT: cyanosis, rash Results Laboratory Results: 03/08/17 05:02 03/08/17 09:27 03/07/17 03/07/17 03/08/17 17:00 21:20 00:56 WBC RBC Hgb Hct MCV MCH MCHC RDW Plt Count Seg Neutrophils % Lymphocytes % Monocytes % Eosinophils % Basophils % Absolute Neutrophils Absolute Lymphocytes Absolute Monocytes Absolute Eosinophils Absolute Basophils Sodium 135.5 L 138.8 143.1 Potassium 3.5 L 3.6 3.4 L Chloride 107 107 111 H Carbon Dioxide 19 L 24 23 Anion Gap 10 8 9 BUN 6 L 5 L 4 L Creatinine 0.68 0.65 0.61 Est GFR ( Amer) > 60 > 60 > 60 Est GFR (Non-Af Amer) > 60 > 60 > 60 Glucose 339 H 260 H 176 H Calcium 8.8 9.1 9.0 Phosphorus Magnesium Total Bilirubin AST ALT Alkaline Phosphatase Total Protein Albumin Urine Color Urine Appearance Urine pH Ur Specific [place] Urine Protein Urine Glucose (UA) Urine Ketones Urine Blood Urine Nitrite Ur Leukocyte Esterase Urine WBC (Auto) 03/08/17 03/08/17 03/08/17 05:02 05:02 05:02 WBC 7.5 RBC 4.24 L Hgb 12.8 L D Hct 37.0 L MCV 87 MCH 30.3 MCHC 34.7 RDW 14.2 H Plt Count 169 Seg Neutrophils % 59.5 Lymphocytes % 28.0 Monocytes % 10.2 Eosinophils % 1.6 Basophils % 0.7 Absolute Neutrophils 4.4 Absolute Lymphocytes 2.1 Absolute Monocytes 0.8 Absolute Eosinophils 0.1 Absolute Basophils 0.1 Sodium 143.3 Potassium 3.3 L Chloride 110 H Carbon Dioxide 26 Anion Gap 7 BUN 4 L Creatinine 0.59 Est GFR ( Amer) > 60 Est GFR (Non-Af Amer) > 60 Glucose 118 H Calcium 9.0 Phosphorus 1.6 L Magnesium 1.6 Total Bilirubin 0.4 AST 17 ALT 33 Alkaline Phosphatase 77 Total Protein 5.5 L Albumin 2.9 L Urine Color Urine Appearance Urine pH Ur Specific [place] Urine Protein Urine Glucose (UA) Urine Ketones Urine Blood Urine Nitrite Ur Leukocyte Esterase Urine WBC (Auto) 03/08/17 03/08/17 09:27 13:30 WBC RBC Hgb Hct MCV MCH MCHC RDW Plt Count Seg Neutrophils % Lymphocytes % Monocytes % Eosinophils % Basophils % Absolute Neutrophils Absolute Lymphocytes Absolute Monocytes Absolute Eosinophils Absolute Basophils Sodium 138.9 Potassium 3.4 L Chloride 108 H Carbon Dioxide 22 Anion Gap 9 BUN 4 L Creatinine 0.63 Est GFR ( Amer) > 60 Est GFR (Non-Af Amer) > 60 Glucose 272 H Calcium 9.0 Phosphorus Magnesium Total Bilirubin AST ALT Alkaline Phosphatase Total Protein Albumin Urine Color STRAW Urine Appearance CLEAR Urine pH 6.0 Ur Specific [place] 1.015 Urine Protein NEGATIVE Urine Glucose (UA) >=500 H Urine Ketones 20 H Urine Blood NEGATIVE Urine Nitrite NEGATIVE Ur Leukocyte Esterase NEGATIVE Urine WBC (Auto) 0 Impressions: Chest X-Ray 03/07/17 00:00 IMPRESSION: Normal portable AP chest radiograph. 2010 [employer] All Rights Reserved Assessment & Plan - Diagnosis (1) Diabetic ketoacidosis Qualifiers: Diabetes mellitus type: type 2 Diabetes mellitus complication detail: without coma Qualified Code(s): E13.10 - Other specified diabetes mellitus with ketoacidosis without coma Is this a current diagnosis for this admission?: Yes Plan: Patient will continue on insulin and IV fluids until ketones have cleared from urine. (2) Hyperglycemia due to type 2 diabetes mellitus Is this a current diagnosis for this admission?: Yes Plan: Newly diagnosed diabetic type II: Patient does not have insurance therefore patient will have to be placed on 70/30 for glycemic control. Patient currently requiring IV insulin drip and IV fluids until gap is closed. Patient still has ketones in urine. (3) Hypokalemia Is this a current diagnosis for this admission?: Yes Plan: We will continue with potassium replacement. BMP in a.m. (4) Hypomagnesemia Is this a current diagnosis for this admission?: Yes Plan: Magnesium replacement ordered. Will check magnesium in a.m. (5) Hypophosphatemia Is this a current diagnosis for this admission?: Yes Plan: Phosphate replacement given. Will check phosphorus level in a.m. (6) Hyperlipidemia Is this a current diagnosis for this admission?: Yes Plan: Statin (7) Obesity Qualifiers: Obesity type: unspecified obesity type Obesity classification: adult class 2 (BMI 35 ? 39.9) Serious obesity comorbidity presence: with serious comorbidity Body mass index: BMI 39.0-39.9 Qualified Code(s): E66.9 - Obesity, unspecified; Z68.39 - Body mass index (BMI) 39.0-39.9, adult; Z68.39 - Body mass index (BMI) 39.0-39.9, adult Is this a current diagnosis for this admission?: Yes Plan: Have encouraged dietary changes and weight loss (8) DVT prophylaxis Is this a current diagnosis for this admission?: Yes Plan: SCDs - Time Time Spent with patient: 15-24 minutes Anticipated discharge: Home
[2017-03-08] MEDS ORDERED: INSULIN NPH (ISOPHANE), HUMAN 100 UNIT/ML 3 ML SUBCUT SCH (18:00)
[2017-03-08 18:41] LABS: ANION GAP 10 (5-19); BLOOD UREA NITROGEN 6 mg/dL (7-20); CALCIUM 9.1 mg/dL (8.4-10.2); CARBON DIOXIDE 25 mmol/L (22-30); CHLORIDE 103 mmol/L (98-107); CREATININE RESULT 0.81 mg/dL (0.52-1.25); POTASSIUM 3.6 mmol/L (3.6-5.0); SODIUM 138.4 mmol/L (137-145)
[2017-03-08 18:43] LABS: APPEARANCE,URINE CLEAR; BILIRUBIN,URINE NEGATIVE (NEGATIVE); GLUCOSE, URINE >=500 mg/dL (NEGATIVE); KETONES,URINE TRACE mg/dL (NEGATIVE); LEUKOCYTE ESTERASE,URINE NEGATIVE (NEGATIVE); NITRITE,URINE NEGATIVE (NEGATIVE); PROTEIN,URINE NEGATIVE (NEGATIVE); URINE SPECIFIC GRAVITY 1.024; UROBILINOGEN,URINE NEGATIVE mg/dL (<2.0)
[2017-03-08 18:50] LABS: GLUCOSE 417 mg/dL (75-110)
[2017-03-08] MEDS ORDERED: INSULIN REG, HUMAN 100 UNIT/ML 3 ML VIAL (PYX) SUBCUT ONE (18:53)
[2017-03-08] MEDS: SIMVASTATIN 40 MG TABLET PO SCH (21:21)
[2017-03-09 06:06] LABS: ABSOLUTE EOSINOPHILS # (AUTO) 0.1 10^3/uL (0.0-0.6); ABSOLUTE LYMPHOCYTES (AUTO) 2.1 10^3/uL (0.5-4.7); ABSOLUTE MONOCYTES (AUTO) 0.6 10^3/uL (0.1-1.4); ABSOLUTE NEUT (AUTO) 2.8 10^3/uL (1.7-8.2); BASOPHILS % (AUTO) 0.7 % (0-2); EOSINOPHILS % (AUTO) 2.2 % (0-6); HEMATOCRIT 38.2 % (37.9-51.0); HEMOGLOBIN 13.1 g/dL (13.5-17.0); HGB HCT DIFFERENCE 1.1; LYMPHOCYTES % (AUTO) 37.1 % (13-45); MEAN CORPUSCULAR HEMOGLOBIN 30.6 pg (27.0-33.4); MEAN CORPUSCULAR HGB CONC 34.4 g/dL (32.0-36.0); MEAN CORPUSCULAR VOLUME 89 fl (80-97); MONOCYTES % (AUTO) 10.9 % (3-13); RED BLOOD COUNT 4.29 10^6/uL (4.35-5.55); RED CELL DISTRIBUTION WIDTH 14.1 % (11.5-14.0); SEGMENTED NEUTROPHILS % (AUTO) 49.1 % (42-78); WHITE BLOOD COUNT 5.6 10^3/uL (4.0-10.5)
[2017-03-09] MEDS: HEPARIN SOD (PORCINE) 5,000 UNIT/ML 1 ML SYRINGE SUBCUT SCH (06:07)
[2017-03-09 06:18] LABS: ANION GAP 10 (5-19); BLOOD UREA NITROGEN 6 mg/dL (7-20); CALCIUM 9.1 mg/dL (8.4-10.2); CARBON DIOXIDE 25 mmol/L (22-30); CHLORIDE 107 mmol/L (98-107); CREATININE RESULT 0.67 mg/dL (0.52-1.25); GLUCOSE 225 mg/dL (75-110); MAGNESIUM 1.9 mg/dL (1.6-2.3); PHOSPHORUS 4.6 mg/dL (2.5-4.5); POTASSIUM 3.5 mmol/L (3.6-5.0); SODIUM 142.3 mmol/L (137-145)
--- NOTE | 2017-03-09 06:27 | EKG REPORT ---
SEVERITY:- ABNORMAL ECG - SINUS RHYTHM PROBABLE LEFT VENTRICULAR HYPERTROPHY ANTERIOR ST ELEVATION, PROBABLY DUE TO LVH : Confirmed by: Norma Stafford MD 09-Mar-2017 06:26:37
[2017-03-09] MEDS ORDERED: POTASSIUM CHLORIDE 10 MEQ TABLET.SA PO ONE (07:15)
[2017-03-09] MEDS ORDERED: MAGNESIUM HYDROXIDE SUSP 30 ML UDCUP PO PRN (07:30)
[2017-03-09] MEDS ORDERED: HUM INSULIN NPH/REG INSULIN HM 100 UNIT/1 ML 3 ML SUBCUT SCH ×2 (08:00)
[2017-03-09] MEDS: LISINOPRIL 10 MG TABLET PO SCH (09:27)
[2017-03-09] MEDS: DOCUSATE SODIUM 100 MG CAPSULE PO SCH (09:27)
--- NOTE | 2017-03-09 10:43 | PDOC DISCHARGE SUMMARY ---
General - Admit/Disc Date/PCP Admission Date/Primary Care Provider: 03/07/17 03:29 Discharge Date: 03/09/17 - Discharge Diagnosis (1) Diabetic ketoacidosis Is this a current diagnosis for this admission?: Yes Summary: Resolved. Patient was placed on IV insulin drip along with IV fluids. Patient' s ketones cleared from urine and patient was transitioned over to scheduled insulin. (2) Hyperglycemia due to type 2 diabetes mellitus Is this a current diagnosis for this admission?: Yes Summary: We diagnosed diabetic type II: We will continue 70/30 at 85 units in the morning and 50 units at bedtime. (3) Hypokalemia Is this a current diagnosis for this admission?: Yes Summary: Resolved with potassium replacement. (4) Hypomagnesemia Is this a current diagnosis for this admission?: Yes Summary: Resolved with magnesium replacement (5) Hypophosphatemia Is this a current diagnosis for this admission?: Yes Summary: Resolved with phosphorus replacement (6) Hyperlipidemia Is this a current diagnosis for this admission?: Yes Summary: Patient placed on statin. Encouraged patient to make dietary changes and exercise more. Also discussed the importance of losing 20-30 pounds. (7) Obesity Is this a current diagnosis for this admission?: Yes Summary: Discussed with patient importance of losing 20-30 pounds in setting of newly diagnosed diabetes type 2. - Additional Information Resuscitation Status: Full Code Discharge Diet: Diabetic Discharge Activity: Activity As Tolerated Home Medications: Hum Insulin NPH/Reg Insulin Hm [Insulin 70-30 (NPH/Reg) 100 unit/mL] 85 unit SUBCUT QAM #1 vial 03/09/17 Lisinopril [Prinivil 10 mg Tablet] 10 mg PO DAILY #30 tablet 03/09/17 NPH, Human Insulin Isophane [Humulin N (NPH) Insulin 100 unit/mL] 50 unit SUBCUT QPM #1 vial 03/09/17 Simvastatin [Zocor 40 mg Tablet] 40 mg PO QHS #30 tablet 03/09/17 History of Present Illness Patient complains of: Increased thirst and urination History of Present Illness: JERRY IZQUIERDO is a 31 year old male presented with complaint of increased thirst and urination. Patient was found to be in DKA with newly diagnosed diabetes type 2. Hospital Course Hospital Course: Patient is a 31-year-old gentleman who presents to our facility with with complaint of increased thirst and urination. Patient was found to have an elevated blood glucose and findings consistent with DKA. Patient was placed on insulin drip given IV fluids for volume expansion. Patient's ketones were also checked as well. Patient's gap closed and was transitioned over to sliding scale insulin. Patient was found to have elevated lipid panel was placed on a statin. Patient was also noted to have essential hypertension and was placed on lisinopril. Patient has done well throughout hospitalization. Patient was found to have magnesium potassium and phosphorus abnormalities however these were corrected with replacement. Physical Exam Vital Signs: Temp Pulse Resp BP Pulse Ox 97.4 F 94 16 112/66 100 03/09/17 09:25 03/09/17 09:25 03/09/17 09:25 03/09/17 09:25 03/09/17 09:25 Intake & Output 03/08/17 03/09/17 03/10/17 06:59 06:59 06:59 Intake Total 64392 5161 Output Total 7225 5175 Balance 2930 -14 Weight 121.1 kg 121.3 kg General appearance: PRESENT: no acute distress, well-developed, well-nourished Head exam: PRESENT: atraumatic, normocephalic Eye exam: PRESENT: conjunctiva pink, EOMI. ABSENT: scleral icterus Ear exam: PRESENT: normal external ear exam Mouth exam: PRESENT: moist, tongue midline Neck exam: ABSENT: carotid bruit, JVD, lymphadenopathy, thyromegaly Respiratory exam: PRESENT: clear to auscultation catracho. ABSENT: rales, rhonchi, wheezes Cardiovascular exam: PRESENT: RRR. ABSENT: diastolic murmur, rubs, systolic murmur Pulses: PRESENT: normal dorsalis pedis pul Vascular exam: PRESENT: normal capillary refill GI/Abdominal exam: PRESENT: normal bowel sounds, soft. ABSENT: distended, guarding, mass, organolmegaly, rebound, tenderness Rectal exam: PRESENT: deferred Extremities exam: PRESENT: full ROM. ABSENT: calf tenderness, clubbing, pedal edema Neurological exam: PRESENT: alert, awake, oriented to person, oriented to place , oriented to time, oriented to situation, CN II-XII grossly intact. ABSENT: motor sensory deficit Psychiatric exam: PRESENT: appropriate affect, normal mood. ABSENT: homicidal ideation, suicidal ideation Skin exam: PRESENT: dry, intact, warm. ABSENT: cyanosis, rash Results Laboratory Results: 03/09/17 05:45 03/09/17 05:45 03/08/17 03/08/17 03/08/17 13:30 18:18 18:20 WBC RBC Hgb Hct MCV MCH MCHC RDW Plt Count Seg Neutrophils % Lymphocytes % Monocytes % Eosinophils % Basophils % Absolute Neutrophils Absolute Lymphocytes Absolute Monocytes Absolute Eosinophils Absolute Basophils Sodium 138.4 Potassium 3.6 Chloride 103 Carbon Dioxide 25 Anion Gap 10 BUN 6 L Creatinine 0.81 Est GFR ( Amer) > 60 Est GFR (Non-Af Amer) > 60 Glucose 417 H* Calcium 9.1 Phosphorus Magnesium Urine Color STRAW COLORLESS Urine Appearance CLEAR CLEAR Urine pH 6.0 7.0 Ur Specific [place] 1.015 1.024 Urine Protein NEGATIVE NEGATIVE Urine Glucose (UA) >=500 H >=500 H Urine Ketones 20 H TRACE H Urine Blood NEGATIVE NEGATIVE Urine Nitrite NEGATIVE NEGATIVE Ur Leukocyte Esterase NEGATIVE NEGATIVE Urine WBC (Auto) 0 0 03/09/17 03/09/17 05:45 05:45 WBC 5.6 RBC 4.29 L Hgb 13.1 L Hct 38.2 MCV 89 MCH 30.6 MCHC 34.4 RDW 14.1 H Plt Count 146 L Seg Neutrophils % 49.1 Lymphocytes % 37.1 Monocytes % 10.9 Eosinophils % 2.2 Basophils % 0.7 Absolute Neutrophils 2.8 Absolute Lymphocytes 2.1 Absolute Monocytes 0.6 Absolute Eosinophils 0.1 Absolute Basophils 0.0 Sodium 142.3 Potassium 3.5 L Chloride 107 Carbon Dioxide 25 Anion Gap 10 BUN 6 L Creatinine 0.67 Est GFR ( Amer) > 60 Est GFR (Non-Af Amer) > 60 Glucose 225 H Calcium 9.1 Phosphorus 4.6 H Magnesium 1.9 Urine Color Urine Appearance Urine pH Ur Specific [place] Urine Protein Urine Glucose (UA) Urine Ketones Urine Blood Urine Nitrite Ur Leukocyte Esterase Urine WBC (Auto) Impressions: Chest X-Ray 03/07/17 00:00 IMPRESSION: Normal portable AP chest radiograph. 2010 [employer]- All Rights Reserved Plan Time Spent: Greater than 30 Minutes - 34 mins
[2017-03-09 13:04] VITALS: BP 111/54
[2017-03-09] MEDS ORDERED: INSULIN NPH (ISOPHANE), HUMAN 100 UNIT/ML 3 ML SUBCUT SCH (18:00)
== END 2017-03-09 13:07 | disposition home or self-care (01) | DRG 639 ==
LOC: ER 22:40 → EH 03-07 02:30 → UNDOADMIN 03-07 02:30 → EH 03-07 03:29 → 3S 03-07 03:45
PROVIDERS: ADMIT Family Medicine; ATTEND Family Medicine
DX: E11.10 Type 2 diabetes mellitus with ketoacidosis without coma (principal); E87.6 Hypokalemia; E83.42 Hypomagnesemia; E83.39 Other disorders of phosphorus metabolism; E78.5 Hyperlipidemia, unspecified; L30.9 Dermatitis, unspecified; E66.01 Morbid (severe) obesity due to excess calories; Z68.39 Body mass index [BMI] 39.0-39.9, adult; Z79.4 Long term (current) use of insulin; Z79.899 Other long term (current) drug therapy; Z82.61 Family history of arthritis; Z83.3 Family history of diabetes mellitus; Z82.49 Family history of ischemic heart disease and other diseases of the circulatory system
CPT/HCPCS: 36415; 71010; 80048; 80053; 80061; 80076; 80307; 81001; 82803; 82962; 83036; 83735; 83930; 84100; 84484; 85025; 93005; 93010; 96360; 99291; J1644; J1815; J3475; J3480; J3490; J7030; J7040

== ENCOUNTER 2017-07-10 07:57 | Emergency (ER) | payer SELFPAY ==
--- NOTE | 2017-07-10 09:12 | ER Document Report ---
HPI - HPI Patient complains to provider of: Injured right thumb Onset: Yesterday - At work last night Onset/Duration: Sudden Pain Level: 4 Context: 31-year-old male dropped a heavy frozen meat on his right thumb while his thumb was in the freezer last night at home. He does not think it is broken but was very swollen and tender this morning. Works moving furniture. Associated Symptoms: None Exacerbated by: Movement - Difficult to make a fist due to pain and swelling Relieved by: Denies Similar symptoms previously: No Recently seen / treated by doctor: No - ROS ROS below otherwise negative: Yes Systems Reviewed and Negative: Yes All other systems reviewed and negative Past Medical History - General Information source: Patient - Social History Smoking Status: Unknown if Ever Smoked Frequency of alcohol use: None Drug Abuse: None Lives with: Family Family History: Arthritis, DM, Hypertension Skin Medical History: Reports Hx Cellulitis, Reports Hx Eczema, Reports Hx Psoriasis Past Surgical History: Reports: Hx Tonsillectomy, Other - [place] teeth extraction - Immunizations Hx Diphtheria, Pertussis, Tetanus Vaccination: No Vertical Provider Document - CONSTITUTIONAL Agree With Documented VS: Yes Exam Limitations: No Limitations General Appearance: No Apparent Distress - INFECTION CONTROL TRAVEL OUTSIDE OF THE [place] IN LAST 30 DAYS: No - HEENT HEENT: Normocephalic - NECK Neck: Supple - RESPIRATORY O2 Sat by Pulse Oximetry: 96 - MUSCULOSKELETAL/EXTREMETIES Musculoskeletal/Extremeties: Tender, Edema - Right first metacarpal area and thenar aspect of the thumb. Nontender snuffbox Notes: Flexor and extensor tendons working normally - NEURO Level of Consciousness: Awake, Alert Motor/Sensory: No Motor Deficit, No Sensory Deficit - DERM Integumentary: Warm, Dry Course - Vital Signs Vital signs: Temp Pulse Resp BP Pulse Ox 98.8 F 83 16 136/79 H 96 07/10/17 08:16 07/10/17 08:16 07/10/17 08:16 07/10/17 08:16 07/10/17 08:16 Procedures - Immobilization Right Thumb Time completed: 09:55 Pre-Proc Neuro Vasc Exam: Normal Immobilizer type: Thumb spica Performed by: PCT Post-Proc Neuro Vasc Exam: Normal Alignment checked and good: Yes Discharge - Discharge Clinical Impression: Avulsion fr prox rt thumb phalanx Condition: Good Disposition: HOME, SELF-CARE Instructions: Splint Precautions ([facility]), Temporary Splint ([facility]), Fractured Thumb ([facility]) Additional Instructions: Keep the splint on Tylenol Motrin Call today for follow-up appointment with Dr. ulrich the orthopedic hand surgeon Modified work note Return to the emergency room any concerns Prescriptions: Ibuprofen [Motrin 800 mg Tablet] 800 mg PO Q8HP PRN #30 tablet PRN Reason: Forms: Restricted Release, Return to Work Referrals: EMELINA HARDY DO [ACTIVE STAFF] - Follow up in 3-5 days (call for follow up appt next week)
--- NOTE | 2017-07-10 09:35 | RADIOLOGY REPORT (SQ) ---
EXAM DESCRIPTION: FINGER RIGHT COMPLETED DATE/TIME: 07/10/2017 9:16 am REASON FOR STUDY: right thumb pain COMPARISON: None. NUMBER OF VIEWS: Three views. TECHNIQUE: AP, lateral, and oblique images acquired of the right thumb LIMITATIONS: None. FINDINGS: MINERALIZATION: Normal. BONES: Small acute avulsion fragment off the base of the right thumb proximal phalanx, at the attachm ent of the ulnar collateral ligament, 1st MCP joint. Avulsion fragment is 2 mm from the donor site. SOFT TISSUES: No soft tissue swelling. No foreign body. OTHER: No other significant finding. IMPRESSION: Acute fracture, ulnar base right thumb proximal phalanx, reflecting an ulnar collateral ligament avulsion injury at the 1st MCP joint. COMMENT: SITE OF TRAUMA/COMPLAINT MARKED/STAMP COMPLETED: YES. TECHNICAL DOCUMENTATION: JOB ID: [id number] [employer]- All Rights Reserved
[2017-07-10 09:51] VITALS: BP 139/90
== END 2017-07-10 09:35 | disposition home or self-care (01) ==
LOC: ER 07:57
PROC: 2W3GX1Z Immobilization of Right Thumb using Splint (ICD-10-PCS; principal; 2017-07-10)
DX: S62.511A Displaced fracture of proximal phalanx of right thumb, initial encounter for closed fracture (principal); W22.8XXA Striking against or struck by other objects, initial encounter
CPT/HCPCS: 99283

== ENCOUNTER → 2017-07-29 | Outpatient (CLI) | payer OTHER | LOC: CCC 09:23 | DX: Z53.9 Procedure and treatment not carried out, unspecified reason (principal) ==

== ENCOUNTER 2017-09-30 07:59 | Emergency (ER) | payer OTHER ==
[2017-09-30] MEDS ORDERED: ACETAMINOPHEN 325 MG TABLET PO ONE (08:03)
--- NOTE | 2017-09-30 08:32 | ER Document Report ---
ED General - General Chief Complaint: Foot Injury Stated Complaint: FOOT PAIN Time Seen by Provider: 09/30/17 08:17 Notes: 32-year-old male presents to the ER after a right foot injury. The patient stated he stepped wrong this morning had sharp sudden pain in the top of his right foot. He denies any falls head or neck injuries. States the pain is severe and worse upon trying to walk. He has done nothing to aided are elevated. No ice. He denies any other complaints of chest pain or shortness of breath no abdominal pain. TRAVEL OUTSIDE OF THE [place] IN LAST 30 DAYS: No - Related Data Allergies/Adverse Reactions: No Known Allergies Allergy (Verified 09/30/17 08:21) Past Medical History - Social History Smoking Status: Unknown if Ever Smoked Family History: Arthritis, DM, Hypertension Patient has suicidal ideation: No Patient has homicidal ideation: No - Past Medical History Cardiac Medical History: Reports: Hx Hypertension Denies: Hx Atrial Fibrillation, Hx Congestive Heart Failure, Hx Coronary Artery Disease, Hx DVT, Hx Heart Attack, Hx Hypercholesterolemia, Hx Pulmonary Embolism Pulmonary Medical History: Denies: Hx Asthma, Hx COPD, Hx Sleep Apnea Neurological Medical History: Denies: Hx Seizures Endocrine Medical History: Reports: Hx Diabetes Mellitus Type 2 - IDDM. Denies : Hx Diabetes Mellitus Type 1, Hx Hyperthyroidism, Hx Hypothyroidism Renal/ Medical History: Denies: Hx Peritoneal Dialysis GI Medical History: Denies: Hx Cirrhosis, Hx Gastroesophageal Reflux Disease, Hx Hepatitis Musculoskeltal Medical History: Denies Hx Arthritis Skin Medical History: Reports Hx Cellulitis, Reports Hx Eczema, Reports Hx Psoriasis Psychiatric Medical History: Denies: Hx Depression Infectious Medical History: Denies: Hx C-Diff, Hx Hepatitis, Hx MRSA Past Surgical History: Reports: Hx Tonsillectomy, Other - [place] teeth extraction - Immunizations Hx Diphtheria, Pertussis, Tetanus Vaccination: No Review of Systems - Review of Systems Gastrointestinal: denies: Diarrhea, Nausea, Vomiting Musculoskeletal: Joint pain Neurological/Psychological: denies: Headaches -: Yes All other systems reviewed and negative Physical Exam - Vital signs Vitals: Temp Pulse Resp BP Pulse Ox 97.4 F 97 18 148/104 H 97 09/30/17 08:04 09/30/17 08:04 09/30/17 08:04 09/30/17 08:04 09/30/17 08:04 - General General appearance: Appears well, Alert - HEENT Head: Normocephalic, Atraumatic Eyes: Normal Conjunctiva: Normal. No: Icteric - Extremities Knee: Normal, Nontender Calf: Normal, Nontender Foot: Tender. No: Abrasion, Deformity, Ecchymosis, Edema, Instability, Laceration, Navicular tenderness, Puncture wound Notes: Tenderness over the dorsum of the foot approximately mid fourth metatarsal, strong dorsalis pedis pulses - Skin Skin Temperature: Warm Skin Moisture: Dry Course - Re-evaluation Re-evalutation: 09/30/17 08:32 Patient twisted his foot the wrong way. There is no fall no head or neck injury. We will get an x-ray of the foot to assess for any fractures. There are strong pulses distally. No obvious deformity or swelling noted. 09/30/17 09:44 No fractures on x-ray will place Lee wrap and crutches follow-up with Orth O as needed - NSAIDs for pain - Vital Signs Vital signs: Temp Pulse Resp BP Pulse Ox 97.4 F 97 18 148/104 H 97 09/30/17 08:04 09/30/17 08:04 09/30/17 08:04 09/30/17 08:04 09/30/17 08:04 - Diagnostic Test Radiology reviewed: Reports reviewed Radiology results interpreted by me: 09/30/17 09:44 Foot X-Ray 09/30/17 08:28 IMPRESSION: Mild forefoot soft tissue swelling. No acute fracture. Discharge - Discharge Clinical Impression: Right foot sprain Qualifiers: Encounter type: initial encounter Qualified Code(s): S93.601A - Unspecified sprain of right foot, initial encounter Condition: Good Disposition: HOME, SELF-CARE Instructions: Sprain ([facility]) Additional Instructions: Follow-up with orthopedics as needed - Dr Mcdaniels -if not improving in 1 week Prescriptions: Ibuprofen [Motrin 600 Mg Tablet] 600 mg PO TID #15 tablet Referrals: BLANCA PEREZ MD [ACTIVE STAFF] - Follow up as needed
--- NOTE | 2017-09-30 09:16 | RADIOLOGY REPORT (SQ) ---
EXAM DESCRIPTION: FOOT RIGHT COMPLETE COMPLETED DATE/TIME: 09/30/2017 8:48 am REASON FOR STUDY: twisted - pain COMPARISON: None. NUMBER OF VIEWS: Three views. TECHNIQUE: AP, lateral and oblique radiographic images acquired of the right foot. LIMITATIONS: None. FINDINGS: MINERALIZATION: Normal. BONES: No acute fracture or dislocation. No worrisome bone lesions. JOINTS: No effusions. SOFT TISSUES: Mild forefoot soft tissue swelling. No foreign body. OTHER: No other significant finding. IMPRESSION: Mild forefoot soft tissue swelling. No acute fracture. TECHNICAL DOCUMENTATION: JOB ID: [id number] [employer]- All Rights Reserved Reading location - IP/workstation name: [email or web address]
[2017-09-30 10:14] VITALS: BP 156/106
== END 2017-09-30 10:14 | disposition home or self-care (01) ==
LOC: ER 07:59
DX: S93.601A Unspecified sprain of right foot, initial encounter (principal); X58.XXXA Exposure to other specified factors, initial encounter; I10 Essential (primary) hypertension; E11.9 Type 2 diabetes mellitus without complications
CPT/HCPCS: 99283